=== PATIENT | female | born 1950 | race Caucasian/White ===

== ENCOUNTER 2023-10-12 00:13 | Inpatient (IN) | payer MEDICARE ==
[~2023-10-12] VITALS: Ht 167.6 cm; Wt 72.7 kg
[2023-10-12 01:27] LABS: BASOPHILS % (AUTO) 0.8 % (0.0-2.0); EOSINOPHILS % (AUTO) 0.5 % (1.0-6.0); HEMATOCRIT 35.9 % (36-46); HEMOGLOBIN 12.4 g/dL (12.0-16.0); LYMPHOCYTES # (AUTO) 0.5 K/uL (1.0-4.8); LYMPHOCYTES % (AUTO) 9.6 % (22.0-44.0); MEAN CORPUSCULAR HEMOGLOBIN 33.5 pg (26.0-34.0); MEAN CORPUSCULAR HGB CONC 34.4 G/dL (31.0-37.0); MEAN CORPUSCULAR VOLUME 97 fL (80-100); MONOCYTES # (AUTO) 0.6 K/uL (0.1-1.0); MONOCYTES % (AUTO) 9.9 % (2.0-9.0); NEUTROPHILS # (AUTO) 4.5 K/uL (1.8-7.7); NEUTROPHILS % (AUTO) 79.2 % (40.0-70.0); PLATELET COUNT (AUTO) 254 K/uL (150-450); RED BLOOD CELL COUNT(AUTO) 3.69 MIL/uL (4.00-5.20); RED CELL DISTRIBUTION WIDTH 13.5 % (11.5-14.5); WHITE BLOOD COUNT (AUTO) 5.6 K/uL (4.5-11.0)
[2023-10-12 01:37] LABS: ANION GAP 14 mmol/L (8-16); CALCIUM, TOTAL 9.1 mg/dL (8.8-10.5); CARBON DIOXIDE 23 mmol/L (22-29); CHLORIDE 101 mmol/L (98-107); CREATININE 0.77 mg/dL (0.60-1.30); GLOMERULAR FILTR. RATE CALC > 60 mL/min (>60); GLUCOSE,RANDOM 114 mg/dL (70-110); POTASSIUM 3.4 mmol/L (3.5-5.1); SODIUM SERUM 138 mmol/L (136-145); UREA NITROGEN, BLOOD 14 mg/dL (7-18)
[2023-10-12 01:45] LABS: ALANINE AMINOTRANSFERASE 31 U/L (12-78); ALBUMIN 4.2 g/dL (3.4-5.0); ALKALINE PHOSPHATASE 63 U/L (46-116); ASPARTATE AMINOTRANSFERASE 22 U/L (15-37); BILIRUBIN,TOTAL 0.7 mg/dL (0.1-1.0); TOTAL PROTEIN, SERUM 7.5 g/dL (6.4-8.2)
[2023-10-12 01:49] LABS: ALCOHOL, BLOOD (SERUM) < 3 mg/dL (0-10)
[2023-10-12] MEDS: TraZODone HCL 50 MG TABLET PO ONE (02:47)
[2023-10-12 04:08] LABS: COVID AG,FIA SOURCE NASAL SWAB
[2023-10-12 04:34] LABS: SARS-COV2 (COVID) ANTIGEN,FIA Negative (Negative)
[2023-10-12 06:56] LABS: PH,URINE DRUG SCREEN 6.5 (5.0-8.0)
[2023-10-12 07:04] LABS: ALCOHOL, URINE DRUG SCREEN NEGATIVE (NEGATIVE); AMPHET/METH SCREEN,URINE NEGATIVE (NEGATIVE); BARBITURATE SCREEN, URINE NEGATIVE (NEGATIVE); BENZODIAZEPINES SCREEN,URINE NEGATIVE (NEGATIVE); CANNABINOID SCREEN,URINE NEGATIVE (NEGATIVE); COCAINE SCREEN,URINE NEGATIVE (NEGATIVE); METHADONE SCREEN, URINE NEGATIVE (NEGATIVE); OPIATE SCREEN,URINE NEGATIVE (NEGATIVE); PHENCYCLIDINE SCREEN,URINE NEGATIVE (NEGATIVE)
[2023-10-12] MEDS: OLANZapine 5 MG TABLET PO ONE (09:31)
[2023-10-12] MEDS: LORazepam 1 MG TABLET PO ONE (09:31)
[2023-10-12] MEDS: DiphenhydrAMINE HCL 50 MG/ML VIAL IM ONE (13:11)
[2023-10-12] MEDS: HALOPERIDOL LACTATE 5 MG/ML VIAL IM ONE (13:12)
[2023-10-12] MEDS: LORazepam 2 MG/ML VIAL IM ONE (13:12)
[2023-10-12 15:59] VITALS: BP 140/93; PULSE 110; RESP 18; TEMP 98.9
[2023-10-12] MEDS: POTASSIUM CHLORIDE 20 MEQ ER TABLET PO ONE (18:01)
[2023-10-12] MEDS ORDERED: LORazepam 2 MG TABLET PO PRN (19:00)
[2023-10-12] MEDS ORDERED: HALOPERIDOL 5 MG TABLET PO PRN (19:00)
[2023-10-12 19:01] VITALS: BP 140/93; PULSE 110; RESP 18; TEMP 98.9; O2SAT 98
[2023-10-12 22:10] VITALS: RESP 18
[2023-10-13 07:44] LABS: APPEARANCE,URINE CLEAR (CLEAR); BILIRUBIN,URINE NEGATIVE (NEGATIVE); COLOR,URINE LIGHT YELLOW (YELLOW); GLUCOSE, URINE (UA) NEGATIVE (NEGATIVE); KETONES,URINE NEGATIVE (NEGATIVE); LEUKOCYTE ESTERASE ,URINE SMALL (NEGATIVE); NITRATE,URINE NEGATIVE (NEGATIVE); OCCULT BLOOD,URINE NEGATIVE (NEGATIVE); PH,URINE 5.5 (5.0-8.0); PROTEIN,URINE NEGATIVE (NEGATIVE); SPECIFIC GRAVITIY, URINE 1.018 (1.003-1.030); UROBILINOGEN,URINE <=1.0 mg/dL (<=1.0)
[2023-10-13 08:30] VITALS: BP 133/67; PULSE 92; RESP 18; TEMP 97.5; O2SAT 98
[2023-10-13 08:35] LABS: RBC,URINE None Seen /HPF (0-2)
[2023-10-13 08:36] LABS: BACTERIA,URINE Few /HPF (None Seen); SQUAMOUS EPITHELIAL CELL,UR Few /LPF (None Seen)
[2023-10-13] MEDS ORDERED: ALBUTEROL SULFATE HFA 90 MCG/PUFF 8 GM INHALER IH PRN (15:30)
[2023-10-13] MEDS ORDERED: ONDANSETRON HCL 4 MG TABLET PO PRN (15:30)
[2023-10-13] MEDS ORDERED: ACETAMINOPHEN 325 MG TABLET PO PRN (15:30)
[2023-10-13] MEDS ORDERED: GuaiFENesin/D-METHORPHAN [SUGAR-FREE] 200-20MG/10 ML SYRUP UDCUP PO PRN (15:30)
[2023-10-13] MEDS ORDERED: MAGNESIUM HYDROXIDE SUSPENSION 30 ML UDCUP PO PRN (15:30)
[2023-10-13] MEDS ORDERED: IBUPROFEN 400 MG TABLET PO PRN (15:30)
[2023-10-13] MEDS ORDERED: DOCUSATE SODIUM 100 MG CAPSULE PO PRN (15:30)
[2023-10-13] MEDS ORDERED: LOPERAMIDE HCL 2 MG CAPSULE PO PRN (15:30)
[2023-10-13] MEDS ORDERED: PETROLATUM,WHITE 28 GM JELLY TP PRN (15:30)
[2023-10-13] MEDS ORDERED: MAG HYDROX/ALUMINUM HYD/SIMETH ES 30 ML SUSPENSION UDCUP PO PRN (15:30)
[2023-10-13] MEDS ORDERED: CloNIDine HCL 0.1 MG TABLET PO PRN (15:30)
[2023-10-13] MEDS ORDERED: NICOTINE 14 MG/24 HOUR PATCH TD PRN (15:30)
[2023-10-13 21:12] VITALS: BP 119/71; PULSE 71; RESP 18; TEMP 97.8; O2SAT 97
[2023-10-13] MEDS: ZOLPIDEM TARTRATE 10 MG TABLET PO PRN (21:58)
[2023-10-14 09:14] LABS: HEMOGLOBIN A1C 5.6 % (3.8-5.6)
[2023-10-14 09:20] VITALS: BP 149/79; PULSE 76; RESP 18; TEMP 96.6; O2SAT 100
[2023-10-14 09:22] LABS: THYROID STIMULATING HORMONE 9.29 uIU/mL (0.36-3.74)
[2023-10-14 21:39] VITALS: BP 140/66; PULSE 79; RESP 16; TEMP 97.5; O2SAT 96
[2023-10-15 08:25] LABS: CHOL/HDL RATIO 6.3 (3.9-5.7)
[2023-10-15 10:08] LABS: T4 (THYROXINE) 5.8 mcg/dL (4.7-13.3)
[2023-10-15 14:33] VITALS: BP 120/82; PULSE 69; RESP 16; TEMP 98.1; O2SAT 98
[2023-10-15 21:44] VITALS: BP 154/76; PULSE 67; RESP 18; TEMP 97.3; O2SAT 97
[2023-10-16] MEDS: LEVOTHYROXINE SODIUM 50 MCG TABLET PO SCH (06:25)
[2023-10-16 09:28] VITALS: BP 131/83; PULSE 69; RESP 18; TEMP 96.8; O2SAT 95
[2023-10-16 20:54] VITALS: BP 151/81; PULSE 82; RESP 18; TEMP 97.3; O2SAT 98
[2023-10-17 09:22] VITALS: BP 162/69; PULSE 71; RESP 17; TEMP 97.7; O2SAT 98
[2023-10-17 20:09] VITALS: BP 119/71; PULSE 66; RESP 18; TEMP 98.1; O2SAT 96
[2023-10-18 08:49] VITALS: BP 131/57; PULSE 74; RESP 18; TEMP 97.8; O2SAT 98
[2023-10-18 21:32] VITALS: BP 135/64; PULSE 75; RESP 18; TEMP 97.2; O2SAT 97
[2023-10-19 08:00] VITALS: BP 132/76; PULSE 73; RESP 18; TEMP 98.4; O2SAT 97
[2023-10-19] MEDS: MEMANTINE HCL 10 MG TABLET PO SCH (09:02)
[2023-10-19 22:21] VITALS: BP 132/66; PULSE 72; RESP 18; TEMP 98; O2SAT 99
[2023-10-20 08:30] VITALS: BP 143/83; PULSE 80; RESP 18; TEMP 97.9; O2SAT 98
[2023-10-20 20:24] VITALS: BP 142/64; PULSE 70; RESP 18; TEMP 97.6; O2SAT 96
[2023-10-21 09:58] VITALS: BP 157/79; PULSE 76; RESP 18; TEMP 97.5; O2SAT 97
[2023-10-21 09:59] VITALS: BP 151/79; PULSE 76; RESP 18; TEMP 97.5; O2SAT 97
[2023-10-21 20:35] VITALS: BP 155/96; PULSE 69; RESP 18; TEMP 97.6; O2SAT 98
[2023-10-21] MEDS: MEMANTINE HCL 5 MG TABLET PO SCH (20:45)
[2023-10-22 09:29] VITALS: BP 188/88; PULSE 67; RESP 16; TEMP 97; O2SAT 98
[2023-10-22] MEDS ORDERED: MEMA10TA24 PO (10:17)
[2023-10-22] MEDS ORDERED: MEMA5TAB41 PO (10:17)
[2023-10-22] MEDS ORDERED: LEVO50 PO (10:17)
[2023-10-24] MEDS ORDERED: MEMA10TA24 PO (18:12)
[2023-10-24] MEDS ORDERED: LEVO50 PO (18:12)
[2023-10-24] MEDS ORDERED: MEMA5TAB41 PO (18:12)
== END 2023-10-22 18:00 | disposition home or self-care (01) | DRG 885 ==
LOC: EMS 00:15 → 3EX 15:21
PROVIDERS: ADMIT Psychiatry & Neurology Child & Adolescent Psychiatry; ATTEND Psychiatry & Neurology Child & Adolescent Psychiatry
PROC: GZHZZZZ Group Psychotherapy (ICD-10-PCS; principal; 2023-10-14)
DX: F29 Unspecified psychosis not due to a substance or known physiological condition (principal); G93.40 Encephalopathy, unspecified; F03.90 Unspecified dementia, unspecified severity, without behavioral disturbance, psychotic disturbance, mood disturbance, and anxiety; Z20.822 Contact with and (suspected) exposure to COVID-19; G47.00 Insomnia, unspecified; R03.0 Elevated blood-pressure reading, without diagnosis of hypertension; R00.0 Tachycardia, unspecified
CPT/HCPCS: 70450; 70551; 80053; 80061; 80307; 81001; 82140; 83036; 84132; 84436; 84443; 85025; 99285; G0378; G0480; J1200; J1630; J2060